=== PATIENT | female | born 1960 | race Caucasian/White ===

== ENCOUNTER 2017-01-14 12:50 | Outpatient (CLI) ==
[2015-10-31 01:46] VITALS: BMI 22.6
[2017-01-14 13:46] LABS: BASOPHILS # (AUTO) 0.1 K/uL (0-0.2); BASOPHILS % (AUTO) 0.4 % (0.0-3.0); EOSINOPHILS % (AUTO) 0.3 % (0.0-7.0); HEMATOCRIT 42.6 % (37.0-47.0); HEMOGLOBIN 14.2 g/dl (12.0-16.0); IMMATURE GRANULOCYTE % (AUTO) 0.3 % (0.0-5.0); LYMPHOCYTES # (AUTO) 2.8 K/uL (0.60-3.4); LYMPHOCYTES % (AUTO) 23.4 (10.0-50.0); MEAN CORPUSCULAR HEMOGLOBIN 29.9 pg (27.0-31.0); MEAN CORPUSCULAR HGB CONC 33.3 (31.8-35.4); MEAN CORPUSCULAR VOLUME 89.7 fl (81.0-99.0); MONOCYTES # (AUTO) 0.7 K/uL (0.4-2.0); MONOCYTES % (AUTO) 5.7 (0-10); NEUTROPHILS # (AUTO) 8.3 K/ul (2.0-6.9); NEUTROPHILS % (AUTO) 69.9; PLATELET COUNT 258 10^3/uL (140-440); RED BLOOD COUNT 4.75 10^6/ul (4.20-5.40)
[2017-01-14 14:21] LABS: ALBUMIN 3.8 g/dL (3.4-5.0); ALBUMIN/GLOBULIN RATIO 1.12; ANION GAP 14.5; BILIRUBIN,TOTAL 0.25 mg/dL (0.00-1.20); CALCIUM 9.7 mg/dL (8.2-10.2); CHOL/HDL RATIO 3.1 (4.5-5.5); CREATININE 0.75 mg/dL (0.60-1.30); POTASSIUM 4.5 mmol/L (3.5-5.10); TOTAL PROTEIN 7.2 g/dL (6.4-8.2)
== END 2017-01-14 12:51 | disposition home or self-care (01) ==
LOC: LAB 12:50
PROVIDERS: ATTEND Family Medicine
DX: R03.0 Elevated blood-pressure reading, without diagnosis of hypertension (principal); F41.9 Anxiety disorder, unspecified; R19.7 Diarrhea, unspecified
CPT/HCPCS: 36415; 80053; 80061; 84443; 85025

== ENCOUNTER 2017-01-15 14:15 | Outpatient (CLI) ==
[2015-10-31 01:46] VITALS: BMI 22.6
== END 2017-01-15 14:16 | disposition home or self-care (01) ==
LOC: RAD 14:15
PROVIDERS: ATTEND Internal Medicine
DX: Z12.31 Encounter for screening mammogram for malignant neoplasm of breast (principal)
CPT/HCPCS: 77067

== ENCOUNTER 2017-04-29 09:25 | Emergency (ER) ==
[2017-04-29 09:47] VITALS: BP 112/77; TEMP 97.7; BMI 18.8
[2017-04-29] MEDS ORDERED: LIDOCAINE 1%-EPI 1:100,000 20 ML MDV ONE (09:56)
--- NOTE | 2017-04-29 10:05 | ED.PDOC ---
General ED Provider: Dr. BARBARA PATINO Chief Complaint: Head Laceration Stated Complaint: Upon awakening, patient got out of bed abruptly. Grabbed a chair et fell head first into the back of chair sustaining a cut to the forehead -frontal scalp when she fell. Has an approximately 5 cm gaping lac to upper forehead area extending inside hairline. Minimal bleeding at present. Pt holding pressure to area.Denies LOC. Was somewhat dazed then realized she has sustained a scalp and foreheard injury. Summoned assistane from her son. Ambulated into the ER unassisted. Was alert, oriented with clear speech. Time Seen by Physician: 09:30 Mode of Arrival: Walk-In Information Source: Patient Primary Care Provider: SHAILA ESPANA Nursing and Triage Documentation Reviewed and Agree: Yes Reviewed sepsis parameters & appropriate labs ordered?: Yes System Inflammatory Response Syndrome: Not Applicable Sepsis Protocol: For patient's 13 years and over: Temp is 96.8 and below OR 101 and greater Pulse >90 BPM Resp >20/minute Acutely Altered Mental Status Are patient's symptoms suggestive of a new infection, such as: -Pneumonia -Skin, Soft Tissue -Endocarditis -UTI -Bone, Joint Infection -Implantable Device -Acute Abdominal Infection -Wound Infection -Meningitis -Blood Stream Catheter Infection -Unknown System Inflammatory Response Syndrome: Not Applicable Trauma/Injury Complaint Exam - Head Injury Complaint/Exam Location of Pain: Reports: Scalp, Forehead Mechanism of Injury: Reports: Trauma Symptoms Are: Still present Initial Severity: Moderate Current Severity: Mild Character: Reports: Sharp Aggravating: Reports: None Alleviating: Reports: None Associated Signs and Symptoms: Denies: Confusion, Memory loss, Seizure, Epistaxis, Neck pain, Nausea, Vomiting Loss of Consciousness: None Related History: Denies: Similar episode, Occupational injury SDH Risk Factors: Present: None Cervical Spine Injury Risk Factors: Absent: Altered LOC, Focal neuro deficit, Distracting injuries Related Surgical History: Reports: None C-Collar in Place: No Head Injury Findings: Present: Normal findings Focal Weakness: Present: None Focal Sensory Loss: Present: None Gait: Normal Gag Reflex Present: Yes Finger to Nose: Normal Nexus Low Risk Criteria: No evidence of intoxicat., No Altered LOC, No focal neuro deficit, No distracting injuries Differential Diagnoses: Other (Blunt Frontal Scalp/Forehead Trauma with Laceration Measuring 6cm) Review of Systems - Review Of Systems Constitutional: Reports: No symptoms Eyes: Reports: No symptoms Ears, Nose, Mouth, Throat: Reports: No symptoms Respiratory: Reports: No symptoms Cardiac: Reports: No symptoms GI: Reports: No symptoms : Reports: No symptoms Musculoskeletal: Reports: No symptoms Skin: Reports: No symptoms Neurological: Reports: No symptoms Endocrine: Reports: No symptoms Hematologic/Lymphatic: Reports: No symptoms All Other Systems: Reviewed and Negative Past Medical History - Past Medical History Endocrine: Reports: None Cardiovascular: Reports: None Respiratory: Reports: Asthma Hematological: Reports: None Gastrointestinal: Reports: None Genitourinary: Reports: None Neuro/Psych: Reports: Anxiety, Depression Musculoskeletal: Reports: Arthritis Cancer: Reports: None Last Menstrual Period: uterine ablasion - Surgical History General Surgical History: Reports: Tubal ligation, Other (uterine ablasion 7 yrs ) - Family History Family History: Reports: None - Social History Smoking Status: Current every day smoker, Heavy tobacco smoker Hx Substance Use: No Alcohol Screening: Occasionally - Immunizations Tetanus Shot up to Date: Yes (5-6 yrs) Physical Exam - Physical Exam Appearance: Well-appearing Ill-appearing: None Pain Distress: Mild Eyes: CATHERINE, EOMI, Conjunctiva clear ENT: Ears normal, Nose normal, Oropharynx normal Neck: Supple Respiratory: Airway patent, Breath sounds clear, Breath sounds equal Cardiovascular: RRR, Pulses normal, No rub, No murmur GI/: Soft, Nontender Musculoskeletal: Normal strength, ROM intact, No edema Skin: Warm, Dry, Normal color Neurological: Sensation intact, Motor intact, Reflexes intact Psychiatric: Affect appropriate, Mood appropriate Procedures - Laceration/Wound Repair Scalp/Forehead Wound Description: Linear, Irregular, Flap, Stellate, Nail-avulsed, Skin tear, Joint proximity, Other Wound Length (cm): 6cm Wound Width: 1.5 cm Wound Depth: deep to periosteum of skull Wound Explored: Clean Wound Irrigated: Yes Wound Prep: Saline, Hibiclens, Betadine, Scrub Anesthesia: Lidocaine w/ Epi (5 cc) Wound Repaired With: Sutures Suture Size and Type: 3-0 Prolene 5; 5-0 prolene, 4 Number of Sutures: 9 Layer Closure?: No Critical Care Note - Critical Care Note Total Time (mins): 0 Course - Course Hematology/Chemistry: 04/29/17 11:10 04/29/17 11:10 Orders, Labs, Meds: Lab Review 04/29/17 04/29/17 11:10 11:10 WBC 9.26 RBC 4.10 L Hgb 12.5 Hct 37.1 MCV 90.5 MCH 30.5 MCHC 33.7 RDW Coeff of [place] 13.8 Plt Count 217 Immature Gran % (Auto) 0.4 Neut % (Auto) 68.0 Lymph % (Auto) 23.1 [place] % (Auto) 7.9 Eos % (Auto) 0.4 Baso % (Auto) 0.2 Immature Gran # (Auto) 0.0 Neut # 6.3 Lymph # 2.1 [place] # 0.7 Eos # 0.0 Baso # 0.0 Sodium 139 Potassium 4.4 Chloride 105 Carbon Dioxide 29 Anion Gap 9.4 BUN 14 Creatinine 0.60 Estimated GFR (MDRD) 104.00 BUN/Creatinine Ratio 23.33 Glucose 97 Calcium 9.7 Total Bilirubin 0.1 AST 85 H ALT 113 H Alkaline Phosphatase 110 H Total Protein 6.3 L Albumin 4.1 Globulin 2.2 Albumin/Globulin Ratio 1.86 Orders Category Date Time Status CBC W/ AUTO DIFF Stat LAB 04/29/17 11:10 Completed CMP [COMPREHENSIVE METABOLIC PANEL] Stat LAB 04/29/17 11:10 Completed ETOH LEVEL [BLOOD ALCOHOL] Stat LAB 04/29/17 12:02 Ordered URINALYSIS C & S IF INDICATED Stat LAB 04/29/17 10:58 Uncollected URINE DRUG SCREEN (RAPID FOR ED) [DRUG SCREEN, URINE, LAB 04/29/17 10:58 Uncollected RAPID] Stat Diphth,Pertuss(Acell),Tet Vac [Boostrix] MEDS 04/29/17 10:59 Discontinued 0.5 ml IM .ONCE ONE Lidocaine 1%/Epinephrine [Lidocaine 1%-Epi 1:100,000 20 MEDS 04/29/17 09:56 Discontinued ml Mdv] 1 ml .ROUTE .STK-MED ONE CT CERVICAL SPINE W/O CONTRAST Stat RADS 04/29/17 10:[address] HEAD W/O CONTRAST Stat RADS 04/29/17 10:54 Completed Medications Discontinued Medications Generic Name Dose Route Start Last Admin Trade Name Freq PRN Reason Stop Dose Admin Diphtheria/Pertussis/Tetanus Vacc 0.5 ml 04/29/17 10:59 04/29/17 11:28 Boostrix IM 04/29/17 11:00 0.5 ml .ONCE ONE Administration Vital Signs: Temp Pulse Resp BP Pulse Ox 04/29/17 09:26 97.7 F 96 H 20 112/77 97 Departure - Departure Time of Disposition: 12:20 Disposition: HOME SELF-CARE Discharge Problem: Blunt head injury, Laceration of scalp, Elevated liver enzymes, Elevated cholesterol Instructions: Care For Your Stitches (ED), General Headache (ED) Condition: Good Pt referred to PMD for follow-up: Yes (See PCP in next 7 days for laceration care and eval abnml liver enzymes) IPMP verified?: No Additional Instructions: Follow wound care instructions May take Ibuprofen 200 mg 2 tabs every 6 hrs for relief of pain or headache See PCP for additonal eval of abnormal lab-liver enzymes and elevated lipids Take antibiotics as directed Allergies/Adverse Reactions: Allergies cephalexin monohydrate [From Keflex] Allergy (Severe, Verified 04/29/17 09:47) thrush and vaginal itch Home Medications: Ambulatory Orders Aspirin [Aspirin Chewable] 81 mg PO DAILYWM 10/31/15 Sertraline HCl 25 mg PO DAILY 10/31/15 Amoxicillin 875 mg PO BID #14 tablet 04/29/17 Meloxicam [Mobic] 15 mg PO DAILY 04/29/17
[2017-04-29] MEDS ORDERED: BOOSTRIX IM ONE (10:59)
--- NOTE | 2017-04-29 11:53 | CT ---
EXAM: CT cervical spine without contrast HISTORY: Head trauma COMPARISON: None TECHNIQUE: CT cervical spine performed without intravenous contrast. Coronal and sagittal reformatt ed images obtained. FINDINGS: Vertebral bodies normal in height. No fracture. No subluxation. Straightening of the no rmal cervical lordosis. Intervertebral spaces maintained. Central canal grossly patent. Prevertebr al soft tissues appear normal. Multiple blebs lung apices. IMPRESSION: 1. No fracture or subluxation. 2. Straightening of the normal cervical lordosis.
--- NOTE | 2017-04-29 12:01 | CT ---
EXAM: CT BRAIN HISTORY: Head trauma TECHNIQUE: CT brain without intravenous contrast. 5-mm axial sections with Reformations. COMPARISON: None FINDINGS: Brain is unremarkable without distinct evidence of hemorrhage or large vessel distribution recent is chemic infarction. There is no suggestion of acute hydrocephalus or subdural fluid collection. No m ass or mass effect. Cranium is within normal limits. Mastoid processes are aerated. The visualized paranasal sinuses a re clear. There is a small laceration in the right frontal peripheral scalp. IMPRESSION: 1. No skull fracture or acute intracranial process/injury. Laceration forehead.
== END 2017-04-29 12:40 | disposition home or self-care (01) ==
LOC: ED 09:25
DX: S01.81XA Laceration without foreign body of other part of head, initial encounter (principal); S01.01XA Laceration without foreign body of scalp, initial encounter; W18.30XA Fall on same level, unspecified, initial encounter; F17.210 Nicotine dependence, cigarettes, uncomplicated; E78.5 Hyperlipidemia, unspecified; R74.8 Abnormal levels of other serum enzymes; S09.90XA Unspecified injury of head, initial encounter
CPT/HCPCS: 36415; 80053; 80307; 85025; 90471; 90715; 99283

== ENCOUNTER 2017-05-27 15:57 | Outpatient (CLI) | END 2017-05-27 15:58 | disposition home or self-care (01) | LOC: LAB 15:57 | PROVIDERS: ATTEND Nurse Practitioner Family | DX: R05 Cough (principal) | CPT/HCPCS: 87651; 87804 ==